=== PATIENT | male | born 1960 | race Caucasian/White ===

== ENCOUNTER 2020-10-15 14:26 | Outpatient (RCR) | payer OTHER, SELFPAY | END 2020-11-20 11:25 | disposition home or self-care (01) | LOC: HO.WCC 14:26 | PROVIDERS: PCP Internal Medicine; Visit Provider Physician Assistant | DX: I83.223 Varicose veins of left lower extremity with both ulcer of ankle and inflammation (principal); L97.321 Non-pressure chronic ulcer of left ankle limited to breakdown of skin; Z86.19 Personal history of other infectious and parasitic diseases; K74.60 Unspecified cirrhosis of liver | CPT/HCPCS: 11042; 29580; 97597; 99212 ==